=== PATIENT | male | born 1970 | race Caucasian/White ===

== ENCOUNTER 2017-08-24 14:17 | Inpatient (IN) | payer SELFPAY ==
[~2017-08-24] VITALS: Ht 162.6 cm; Wt 61.7 kg
[~2017-08-24 14:17] MED LIST: insulin
[2017-08-24 16:16] LABS: BASOPHILS % 1.5 % (0.0-2.0); EOSINOPHILS % 6.3 % (0.0-5.0); HEMATOCRIT. 33.8 % (42.0-52.0); HEMOGLOBIN. 10.9 g/dL (14.0-18.0); LYMPHOCYTES % 28.1 % (20.0-50.0); MEAN CORPUSCULAR HEMOGLOBIN 32.9 pg (28.0-32.0); MEAN CORPUSCULAR VOLUME 101.5 fL (80.0-94.0); MEAN PLATELET VOLUME 9.9 fl (7.4-10.4); MONOCYTES % 8.4 % (2.0-8.0); NEUTROPHILS % 55.7 % (40.0-76.0); PLATELET 181 x1000/uL (130-400); RED BLOOD CELL COUNT 3.33 mill/uL (4.7-6.1); RED CELL DISTRIBUTION WIDTH 15.9 % (11.6-14.6)
[2017-08-24 16:20] LABS: CHLORIDE 108 mEq/L (98-107)
[2017-08-24] MEDS ORDERED: INSULIN REGULAR (HUMULIN R) 300UNITS/3ML IV ONE (17:30)
[2017-08-24] MEDS ORDERED: DEXTROSE 50% WATER 50ML SYRINGE IV ONE (17:30)
[2017-08-24] MEDS ORDERED: ALBUTEROL (0.083%) 2.5MG/3ML NEB HHN ONE (17:30)
[2017-08-24] MEDS ORDERED: ONDANSETRON HCL 4MG/2ML VIAL IV ONE (17:30)
[2017-08-24] MEDS ORDERED: SODIUM BICARBONATE 8.4% 1 MEQ/ML 50ML SYR IV ONE (17:30)
[2017-08-24] MEDS ORDERED: KETOROLAC 30MG/ML VIAL IV ONE (17:30)
[2017-08-24] MEDS ORDERED: ZOLPIDEM TARTRATE 5MG TABLET PO PRN (19:00)
[2017-08-24] MEDS ORDERED: IPRATROPIUM/ALBUTEROL 0.5-3(2.5)MG/3ML NEB INH PRN (19:00)
[2017-08-24] MEDS ORDERED: ACETAMINOPHEN 325MG TABLET PO PRN (19:00)
[2017-08-24] MEDS ORDERED: LORAZEPAM 0.5MG TABLET PO PRN (19:00)
[2017-08-24] MEDS ORDERED: DEXTROSE 50% WATER 50ML SYRINGE IV PRN (19:00)
[2017-08-24] MEDS ORDERED: DOCUSATE SODIUM 100MG CAPSULE PO PRN (19:00)
[2017-08-24] MEDS ORDERED: GUAIFENESIN 200MG/10ML SUGAR FREE UDC PO PRN (19:00)
[2017-08-24] MEDS ORDERED: MAGNESIUM/ALUMINUM HYDROXIDE/SIMETHICONE 30ML UDC PO PRN (19:00)
[2017-08-24] MEDS ORDERED: SODIUM POLYSTYRENE SULFONATE 15 G/60 ML BOT PO NR (19:00)
[2017-08-24] MEDS ORDERED: CLONIDINE 0.1MG TABLET PO PRN (19:00)
[2017-08-24] MEDS ORDERED: ONDANSETRON HCL 4MG/2ML VIAL IV PRN (19:00)
[2017-08-24] MEDS ORDERED: NITROGLYCERIN 0.4MG TABLET SL SL PRN (19:00)
[2017-08-24] MEDS ORDERED: NA PHOS,M-B/NA PHOS,DI-BA ENEMA 118ML PR PRN (19:00)
[2017-08-24 22:25] VITALS: BP 155/86
[2017-08-24 22:30] VITALS: BP 150/91
[2017-08-24] MEDS: INSULIN LISPRO 100 UNITS/ML SUBCUT SCH (23:00)
[2017-08-24] MEDS: BLOOD SUGAR DIAGNOSTIC STRIP TEST SCH (23:00)
[2017-08-24 23:05] LABS: CREATINE KINASE 135 IU/L (39-308)
[2017-08-24 23:06] LABS: CREATINE KINASE MB FRACTION 3.7 ng/mL (0.5-3.6)
[2017-08-25] VITALS: BP 155/86
[2017-08-25] MEDS: DIPHENHYDRAMINE 50MG/ML VIAL IV PRN ×2 (00:14→04:34)
[2017-08-25 04:00] VITALS: BP_SYST 124; BP_SYST 154; BP_DIAS 66; BP_DIAS 87
[2017-08-25] MEDS: INSULIN LISPRO 100 UNITS/ML SUBCUT SCH (06:13)
[2017-08-25] MEDS: BLOOD SUGAR DIAGNOSTIC STRIP TEST SCH (06:14)
[2017-08-25] MEDS ORDERED: METOCLOPRAMIDE 10MG/10 ML UDC PO SCH (07:10)
[2017-08-25] MEDS ORDERED: SEVELAMER CARBONATE 800 MG TABLET PO SCH (07:40)
[2017-08-25 07:44] LABS: CREATINE KINASE 170 IU/L (39-308)
[2017-08-25] MEDS ORDERED: FOLIC ACID/VITAMIN B COMP W-C TABLET PO SCH (09:00)
[2017-08-25] MEDS ORDERED: FAMOTIDINE 20MG TABLET PO SCH (09:00)
[2017-08-25] MEDS ORDERED: ENOXAPARIN 30MG/0.3ML SYR SUBCUT SCH (09:00)
[2017-08-25] MEDS ORDERED: ASPIRIN 325MG EC TABLET PO SCH (09:00)
[2017-08-25] MEDS ORDERED: METOPROLOL TARTRATE 25MG TABLET PO SCH (09:00)
== END 2017-08-25 07:57 | disposition left against medical advice (07) | DRG 241 ==
LOC: ER 14:30 → 8WST 17:32 → ENRESERV 21:18
PROVIDERS: ADMIT Internal Medicine; ATTEND Internal Medicine
DX: K29.70 Gastritis, unspecified, without bleeding (principal); E87.2 Acidosis; K31.84 Gastroparesis; I12.0 Hypertensive chronic kidney disease with stage 5 chronic kidney disease or end stage renal disease; E11.22 Type 2 diabetes mellitus with diabetic chronic kidney disease; E11.43 Type 2 diabetes mellitus with diabetic autonomic (poly)neuropathy; N18.6 End stage renal disease; N25.81 Secondary hyperparathyroidism of renal origin; D63.8 Anemia in other chronic diseases classified elsewhere; E83.51 Hypocalcemia; E87.5 Hyperkalemia; F41.9 Anxiety disorder, unspecified; Z53.21 Procedure and treatment not carried out due to patient leaving prior to being seen by health care provider; Z99.2 Dependence on renal dialysis; Z79.4 Long term (current) use of insulin; Z82.49 Family history of ischemic heart disease and other diseases of the circulatory system; Z91.14 Patient's other noncompliance with medication regimen; Z91.15 Patient's noncompliance with renal dialysis
CPT/HCPCS: 36415; 71045; 80053; 80061; 82550; 82553; 82962; 83036; 83605; 84484; 85025; 87040; 93005; 96374; 96375; 99285; J1200; J1815; J1885; J2405; J3490; J8597